=== PATIENT | male | born 1995 | race Two or more races ===

== ENCOUNTER 2024-10-19 16:51 | Inpatient (IN) | payer OTHER ==
[~2024-10-19] VITALS: Ht 167.6 cm; Wt 99.8 kg
[2024-10-19] MEDS: ONDANSETRON HCL 4 MG/2 ML VIAL IVP ONE (18:17)
[2024-10-19] MEDS: BENZOCAINE 20% 50 MCG/SPRAY 57 GM TP ONE (18:17)
[2024-10-19] MEDS: MORPHINE SULFATE 4 MG/ML SYRINGE IVP ONE (18:18)
[2024-10-19] MEDS: LIDOCAINE 1% 10 ML VIAL SQ ONE (18:18)
[2024-10-19 18:37] LABS: PLATELET COUNT (AUTO) 330 K/uL (150-450); RED BLOOD CELL COUNT(AUTO) 5.25 MIL/uL (4.50-5.90); RED CELL DISTRIBUTION WIDTH 13.2 % (11.5-14.5); WHITE BLOOD COUNT (AUTO) 16.4 K/uL (4.5-11.0)
[2024-10-19 18:38] LABS: CALCIUM, TOTAL 8.8 mg/dL (8.8-10.5); CREATININE 0.74 mg/dL (0.60-1.30); GLOMERULAR FILTR. RATE CALC > 60 mL/min (>60); GLUCOSE,RANDOM 92 mg/dL (70-110); SODIUM SERUM 141 mmol/L (136-145); UREA NITROGEN, BLOOD 11 mg/dL (7-18)
[2024-10-19] MEDS: SODIUM CHLORIDE 0.9% 1,000 ML IV ONE (19:00)
[2024-10-19] MEDS: DEXAMETHASONE SOD PHOS 4 MG/ML 5 ML VIAL IVP ONE (19:13)
[2024-10-19] MEDS: CLINDAMYCIN 900 MG/D5% WATER 50 ML IV ONE (19:13)
[2024-10-19] MEDS ORDERED: 0.9% SODIUM CHLORIDE 10 ML SYRINGE IVP ONE (19:40)
[2024-10-19] MEDS ORDERED: IOHEXOL 350 MG/ML 100 ML VIAL ONE (19:40)
[2024-10-19] MEDS ORDERED: SODIUM CHLORIDE 0.9% 100 ML ONE (19:40)
[2024-10-19] MEDS ORDERED: ONDANSETRON HCL 4 MG/2 ML VIAL IVP PRN (21:00)
[2024-10-19] MEDS: DOCUSATE SODIUM 100 MG CAPSULE PO SCH (21:00)
[2024-10-19] MEDS ORDERED: 0.9% SODIUM CHLORIDE 10 ML SYRINGE IVP PRN (21:00)
[2024-10-19] MEDS ORDERED: ACETAMINOPHEN 325 MG TABLET PO PRN (21:00)
[2024-10-19] MEDS: SODIUM CHLORIDE 0.9% 3,000 ML IV ONE (21:15)
[2024-10-19 21:43] LABS: LACTIC ACID 0.6 mmol/L (0.4-2.0)
[2024-10-19 21:45] LABS: CALCIUM, TOTAL 8.5 mg/dL (8.8-10.5); CREATININE 0.65 mg/dL (0.60-1.30); GLOMERULAR FILTR. RATE CALC > 60 mL/min (>60); GLUCOSE,RANDOM 98 mg/dL (70-110); SODIUM SERUM 139 mmol/L (136-145); UREA NITROGEN, BLOOD 10 mg/dL (7-18)
[2024-10-19 21:49] LABS: ASPARTATE AMINOTRANSFERASE 11 U/L (15-37); TOTAL PROTEIN, SERUM 7.4 g/dL (6.4-8.2)
[2024-10-19 22:02] LABS: LACTATE DEHYDROGENASE 142 U/L (85-227)
[2024-10-19 23:30] VITALS: BP 143/81; PULSE 94; RESP 18; TEMP 99.3; O2SAT 96
[2024-10-20] MEDS: DEXAMETHASONE SOD PHOS 4 MG/ML VIAL IVP SCH (00:17)
[2024-10-20] MEDS ORDERED: SODIUM CHLORIDE 0.9% 250 ML IV ONE (03:31)
[2024-10-20] MEDS: CLINDAMYCIN 600 MG/D5% WATER 50 ML IV SCH (03:36)
[2024-10-20] MEDS: DEXTROSE 5%-LACTATED RINGERS 1,000 ML IV ONE (04:47)
[2024-10-20 04:57] VITALS: BP 130/76; PULSE 61; RESP 18; TEMP 97.9; O2SAT 98
[2024-10-20 06:33] LABS: PLATELET COUNT (AUTO) 319 K/uL (150-450); RED BLOOD CELL COUNT(AUTO) 4.94 MIL/uL (4.50-5.90); RED CELL DISTRIBUTION WIDTH 13.2 % (11.5-14.5); WHITE BLOOD COUNT (AUTO) 13.3 K/uL (4.5-11.0)
[2024-10-20 07:24] VITALS: BP 127/72; PULSE 59; RESP 18; TEMP 97.9; O2SAT 96
[2024-10-20 11:35] VITALS: BP 119/68; PULSE 69; RESP 18; TEMP 98.2; O2SAT 95
[2024-10-20 15:53] VITALS: BP 128/70; PULSE 72; RESP 18; TEMP 98.2; O2SAT 96
[2024-10-20 20:00] VITALS: BP 119/73; PULSE 71; RESP 18; TEMP 98.2; O2SAT 95
[2024-10-21] VITALS: BP 123/73; PULSE 58; RESP 18; TEMP 98.4; O2SAT 96
[2024-10-21] MEDS: HEPARIN SODIUM,PORCINE 5,000 UNITS/ML VIAL SQ SCH
[2024-10-21 04:30] VITALS: BP 118/66; PULSE 52; RESP 18; TEMP 97.7; O2SAT 96
[2024-10-21 09:09] VITALS: BP 118/67; PULSE 51; RESP 18; TEMP 97.7; O2SAT 97
[2024-10-21] MEDS ORDERED: SODIUM CHLORIDE 0.9% 500 ML IV ONE (12:07)
[2024-10-21] MEDS: CLINDAMYCIN 600 MG/D5% WATER 50 ML IV SCH (12:44)
[2024-10-21 20:45] VITALS: BP 115/69; PULSE 52; RESP 18; TEMP 97.7; O2SAT 96
[2024-10-22 04:38] VITALS: BP 121/78; PULSE 65; RESP 18; TEMP 98; O2SAT 97
[2024-10-22 07:48] LABS: PLATELET COUNT (AUTO) 406 K/uL (150-450); RED BLOOD CELL COUNT(AUTO) 4.96 MIL/uL (4.50-5.90); RED CELL DISTRIBUTION WIDTH 13.3 % (11.5-14.5); WHITE BLOOD COUNT (AUTO) 14.4 K/uL (4.5-11.0)
[2024-10-22 07:56] LABS: CALCIUM, TOTAL 8.9 mg/dL (8.8-10.5); CREATININE 0.76 mg/dL (0.60-1.30); GLOMERULAR FILTR. RATE CALC > 60 mL/min (>60); GLUCOSE,RANDOM 127 mg/dL (70-110); SODIUM SERUM 137 mmol/L (136-145); UREA NITROGEN, BLOOD 17 mg/dL (7-18)
[2024-10-22 08:18] VITALS: BP 118/68; PULSE 68; RESP 18; TEMP 98.2; O2SAT 98
[2024-10-22] MEDS ORDERED: PRED-554 PO (11:05)
[2024-10-22] MEDS ORDERED: CLIN300C58 PO (11:07)
[2024-10-22] MEDS ORDERED: LACT1TAB14 PO (11:08)
== END 2024-10-22 14:21 | DRG 872 ==
LOC: EMS 16:51 → EDH 20:49 → 5S 23:27 → 6S 10-21 02:06
PROVIDERS: ADMIT Internal Medicine; ATTEND Internal Medicine
DX: A41.89 Other specified sepsis (principal); J36 Peritonsillar abscess; E66.9 Obesity, unspecified; F17.210 Nicotine dependence, cigarettes, uncomplicated; Z68.35 Body mass index [BMI] 35.0-35.9, adult; Z88.0 Allergy status to penicillin
CPT/HCPCS: 70498; 71045; 80048; 80053; 83605; 83615; 83735; 84145; 85025; 85730; 87040; 87070; 87205; 87430; 93005; 99291; J1100; J1644; J2270; J2405; J3490; J7040; J7050; 36415-L1; 36415-TC